=== PATIENT | female | born 1990 ===

== ENCOUNTER 2018-01-07 19:05 | Inpatient (IN) ==
[~2018-01-07 19:05] MED LIST: Famotidine 20 MG/2 ML VIAL IVP PRN; Lidocaine 1% 20 ML MDV INFILT PRN; Metoclopramide 10 MG/2 ML VIAL IVP PRN; Naloxone 0.4 MG/ML INJ IVP PRN; Ondansetron 4 MG/2 ML VIAL IVP PRN; Ringers Solution, Lactated 1,000 ML ONE
[2018-01-07] MEDS ORDERED: Oxytocin 20 units/ LR 1000 mL 20 UNIT/1,000 ML BAG IVC ONE (19:06)
[2018-01-07] MEDS ORDERED: Ringers Solution, Lactated 1,000 ML IVC SCH (19:15)
[2018-01-07] MEDS ORDERED: EPHEDrine 50 MG/ML VIAL IVP PRN (19:18)
[2018-01-07] MEDS ORDERED: Ringers Solution, Lactated 500 ML IVC ONE (19:18)
[2018-01-07 19:21] LABS: Basophils # 0.1 K/mcL (0.0-0.2); Basophils % 0.3 %; Eosinophils % 0.1 %; Hematocrit 38.1 % (35.3-44.9); Hemoglobin 12.2 g/dL (11.5-15.4); Immature Granulocytes % 1.2 % (0-4); Lymphocytes % 6.2 %; Mean Corpuscular Volume 87.4 fL (83.0-100.0); Mean Platelet Volume 11.3 fL (9.4-12.4); Monocytes # 0.6 K/mcL (0.0-1.3); Monocytes % 3.7 %; Neutrophils # 14.9 K/mcL (1.6-8.9); Platelet Count 246 K/mcL (140-400); Red Blood Count 4.36 M/mcL (3.82-4.97); Red Cell Distribution Width 13.1 % (11.5-14.5); Segmented Neutrophils % 88.5 %
--- NOTE | 2018-01-07 19:23 | Anesthesia Evaluation PreOp ---
Date of Encounter: 01/07/18 Time of Encounter: 19:21 - Past History Planned Operation: JAIDEN Cardiac History: Denies any Significant Hx Pulmonary History: Denies Any Significant HX [employer] History: Denies Any Significant HX Other Medical History: Denies Any Significant HX Anesthesia History: No Prior Anesthetic Complications : Yes Drug use: IV Drug Use (none within last 3 months) Medications and Allergies 3 Allergy/AdvReac Type Severity Reaction Status Date / Time Penicillins Allergy Anaphylaxis Verified 01/07/18 19:05 - Meds/Allergy Pre-op Review Medications Reviewed: Yes Allergies Reviewed: Yes Beta Blockers on Current Med List: No Anesthesia Exam Height: 5'6" Weight: 63.4kg NPO (# of Hours): 4 Pain Scale: 9 Pain Scale Used: Numeric (1 - 10) - HEENT Pupil (Motor): Pupils equal Mallampati: II Teeth: Poor dentition Oral Opening: Greater than 3 - [employer] LOC: Oriented [employer] Motor: Normal RUE, Normal LUE, Normal RLE, Normal LLE, Normal Face [employer] Sensory: Normal: RUE, LUE, RLE, LLE, Face - Cardiac Rhythm: Regular Murmur: None JVD: No Carotid Bruit: No - Pulmonary Breath Sounds: bilateral Clear Respiratory Effort: Symmetrical Anesthesia Assess/Plan ASA Score: 3 Modified Pocahontas Scale for Level of Consciousness: Cooperative, oriented, and tranquil Anesthetic Plan: General (plan b), Regional (plan a) Autologous Blood: Yes Monitoring Plan: Standard Monitors
[2018-01-07] MEDS ORDERED: Epidural Premix (fent/bupiv) 110 ML EP SCH (19:30)
[2018-01-07] MEDS ORDERED: Epidural Premix (fent/bupiv) 110 ML EP ONE (19:36)
[2018-01-07] MEDS ORDERED: Lidocaine/EPI 1:200k 2% PF 20 ML VIAL ONE (19:36)
--- NOTE | 2018-01-07 19:50 | Anesthesia Procedures ---
Date of Encounter: 01/07/18 Time of Encounter: 19:48 Procedures: Anesthesia - Epidural/Spinal Patient ID/Chart reviewed: Yes Patient examined: Yes OB Eval: Gestational age: 38 OB Eval: : 2 OB Eval: Hx Para: 0 OB Eval: Dilated at (cm): 9 OB Eval: Contractions: Non-stressed pattern Consent Obtained: Yes Supplemental Oxygen: None/Room Air Site Prep: Aseptic Technique, Sterile prep and drape, Povidone-Iodine 1% Patient position: upright Local Anesthetic: Lidocaine 1% Amount of Local Anesthetic used: 3 Touhy Needle Gauge: 18 Touhy Needle Depth (cm): 8 Catheter Depth at Skin (cm): 18 Test Dose (1.5% Lido + Epi): Volume given (mls): 5 Test Dose Result: Negative Loading Dose: Other: 10ml of 2%lidocaine with epi Loading Dose Administered: Thru Catheter Infusion Med: 0.125% Bupivacaine w/ 2 mcg/ml Fentanyl Infusion Rate (mls/hr): [address]: Tegaderm, Tape Interspace Used: L3-L4 Loss of Resistance (YAEL): Yes Blood: No CSF: No Paresthesia: No Procedure: pt tolerated procedure well. no complications. vss. fhr stable throughout procedure. see nursing notes for full vitals.
--- NOTE | 2018-01-07 19:58 | OB/GYN History & Physical ---
Date of Encounter: 01/07/18 Time of Encounter: 19:51 Assessment and Plan (1) 39 weeks gestation of Current visit: Yes Status: Acute (2) Active labor at term Current visit: Yes Status: Acute admit to labor and delivery epidural as desired Vancomycin for GBS unkn anticipate (3) Opioid use disorder, moderate, in early remission Current visit: Yes Status: Acute History of Present Illness HPI: Ms. Rosas is a 27 year old female 39+6 presents with contractions. Reports good movement denies vaginal bleeding or leaking of fluid prior to arrival. No care since 5th month. Pt states has relocated back to [place] to [place]. No health history other than opiod use. Per patient has not used in the last 2 months, drug of choice was heroin. Pt states no complications identified Past Med Surg Social Fam HX - Social History Drug use: IV Drug Use (none within last 3 months) Obstetrical History - Pregnancies : 2 Para: 0 Term: 0 : 0 Ab's: 1 Livin Medications and Allergies 3 Allergy/AdvReac Type Severity Reaction Status Date / Time Penicillins Allergy Anaphylaxis Verified 01/07/18 19:05 Exam - Constitutional Constitutional: well developed, well nourished, no acute distress, average body habitus - Neck Neck exam: full ROM - Lungs Respiratory exam: CTAB - Cardiovascular Cardiovascular exam: RRR - Abdomen Abdomen: Present: bowel sounds normal, gravid, non tender - Extremities Extremities exam: normal capillary refill, normal inspection - Vagina Vagina: Present: normal moisture - Cervix Dilation: 9 Station: +1 Results Result Diagrams: 01/07/18 19:04 Abnormal lab results WBC 16.8 K/mcL (4.3-11.1) H 01/07/18 19:04 Neutrophils # 14.9 K/mcL (1.6-8.9) H 01/07/18 19:04 All other labs normal. - VTE Reasons for not Prescribing Prophylaxis: Treatment not Indicated - Low risk for VTE
[2018-01-07 20:31] LABS: Benzodiazepines Screen,Urine Negative ng/mL (Cutoff=200); Opiate Screen,Urine Positive ng/mL (Cutoff=300); Phencyclidine Screen,Urine Negative ng/mL (Cutoff=25)
[2018-01-07 20:39] LABS: Amphetamine Screen,Urine Negative ng/mL (Cutoff=1000); Barbiturate Screen,Urine Negative ng/mL (Cutoff=200); Cannabinoid Screen,Urine Negative ng/mL (Cutoff = 50); Cocaine Screen,Urine Negative ng/mL (Cutoff= 300)
[2018-01-07 22:12] LABS: Hepatitis B Surface Antigen Nonreactive (Nonreactive)
[2018-01-08] MEDS ORDERED: *HR* Nalbuphine 20 MG/ML AMPUL IVP PRN (00:51)
[2018-01-08] MEDS ORDERED: *HR* Midazolam HCl 2 MG/2 ML VIAL IVP ONE (00:52)
[2018-01-08] MEDS ORDERED: Clindamycin 900 MG/50 ML 900 MG/50 ML IV.SOLN IVPB ONE (01:10)
[2018-01-08] MEDS ORDERED: *HR* FentaNYL (PF) 100 MCG/2 ML VIAL ONE (01:11)
[2018-01-08] MEDS ORDERED: Chloroprocaine/PF 20 ML VIAL INFILT ONE (01:11)
[2018-01-08] MEDS ORDERED: diazePAM 10 MG/2 ML SYRINGE IVP PRN (01:24)
--- NOTE | 2018-01-08 01:52 | Anesthesia Progress Note ---
Date of Encounter: 01/08/18 Time of Encounter: 01:50 Anesthesia Note - Note Note: 01/08/18 01:50 called for retained placenta - bolus needed. 20ml of 3% nesacaine with 100mcg fentanyl given. pt comfortable during exam for dr. robertson. iv bolus given of 900ml.
--- NOTE | 2018-01-08 01:59 | OB/GYN Procedure Note ---
Delivery - Delivery Date: 01/08/18 Provider: Eleanor Kerr Intrapartum events: none Delivery induction: none Delivery monitor: external FHT, external uterine Anesthesia: epidural Estimated Blood Loss: 350 - (s) A Delivery Date: 01/08/18 Infant Delivery Time: 00:00 Presentation: vertex Position: OA Route of delivery: Gender: Male Viability: Viable Pounds: 7 Ounces: 6 Weight Gram: 3335 kg at 1 minute: 9 at 5 mins: 9 Shoulder Dystocia: not encountered Specimens collected: cord blood Placenta: uterine exploration, partial extraction Cord: nuchal cord, 3 umbilical vessels, delivered through nuchal - Repair Laceration Description: Perineal - 1st Degree - Complications Delivery complications: retained placenta Delivery comments: pt admitted in active labor at 9cm, epidural, progressed to complete, vertex delivered OA, nuchal cord identified, shoulders and body easily followed as was somersaulted through nuchal cord. vigorous infant placed on maternal abdomen for drying and stimulation. Placenta very slow to delivery at over 30 minutes partial delivery of the placenta occured (adrian), placenta did not continue to release from uterine wall. Dr. Crump called in at this time for manual extraction of placenta. See MD addendum. 1st degree laceration repaired by Dr. Crump EBL 350. - Disposition Mom disposition: stable in LDR [place] disposition: stable in LDR
[2018-01-08] MEDS ORDERED: EPHEDrine 50 MG/ML VIAL ONE (02:12)
[2018-01-08 02:13] LABS: HIV-1&2 Antibody & p24 Ag Nonreactive (Nonreactive)
[2018-01-08] MEDS ORDERED: Benzocaine/Menthol 56 GM AEROSOL SPRAY TP PRN (03:12)
[2018-01-08] MEDS ORDERED: *HR* HYDROcodone/Acet 5/325 mg TABLET PO PRN (03:12)
[2018-01-08] MEDS ORDERED: Measles/Mumps/Rubella Vacc 0.5 ML VIAL SQ PRN (03:12)
[2018-01-08] MEDS ORDERED: Oxytocin 20 units/ LR 1000 mL 20 UNIT/1,000 ML BAG IVC SCH (03:12)
[2018-01-08 06:33] LABS: Basophils % 0.1 %; Hemoglobin 7.3 g/dL (11.5-15.4); Immature Granulocytes % 0.9 % (0-4); Lymphocytes # 1.5 K/mcL (0.6-4.6); Mean Corpuscular HGB Conc 33.2 g/dL (31.6-35.5); Mean Corpuscular Hemoglobin 28.5 pg (28.0-33.3); Mean Corpuscular Volume 85.9 fL (83.0-100.0); Mean Platelet Volume 10.5 fL (9.4-12.4); Monocytes # 1.6 K/mcL (0.0-1.3); Monocytes % 7.5 %; Neutrophils # 17.6 K/mcL (1.6-8.9); Platelet Count 229 K/mcL (140-400); Red Blood Count 2.56 M/mcL (3.82-4.97); Red Cell Distribution Width 13.1 % (11.5-14.5); Segmented Neutrophils % 84.5 %
[2018-01-08] MEDS: Prenatal Vit/FA 1 EACH TABLET PO SCH (08:18)
[2018-01-08] MEDS: Acetaminophen 325 MG TABLET PO PRN ×2 (08:18→21:46)
[2018-01-08] MEDS ORDERED: 0.9 % Sodium Chloride 1,000 ML ONE (09:27)
[2018-01-08 12:24] LABS: Basophils % 0.1 %; Hematocrit 20.6 % (35.3-44.9); Hemoglobin 6.8 g/dL (11.5-15.4); Immature Granulocytes % 0.7 % (0-4); Lymphocytes # 1.3 K/mcL (0.6-4.6); Lymphocytes % 8.2 %; Mean Corpuscular Hemoglobin 28.2 pg (28.0-33.3); Mean Corpuscular Volume 85.5 fL (83.0-100.0); Mean Platelet Volume 10.9 fL (9.4-12.4); Monocytes % 6.3 %; Neutrophils # 13.7 K/mcL (1.6-8.9); Platelet Count 207 K/mcL (140-400); Red Blood Count 2.41 M/mcL (3.82-4.97); Segmented Neutrophils % 84.7 %
--- NOTE | 2018-01-08 17:00 | Event Note ---
Date of Encounter: 01/08/18 Time of Encounter: 16:56 Reviewed CBCs. Pt denies feeling lightheaded or dizzy, adequate urine output. bleeding is minimal, Pt does not want transfusion at this time. Will reevaluate CBC in AM. Iron increased to BID
[2018-01-09 04:36] LABS: Basophils % 0.2 %; Eosinophils # 0.1 K/mcL (0.0-0.6); Eosinophils % 0.8 %; Hematocrit 18.6 % (35.3-44.9); Immature Granulocytes % 1.7 % (0-4); Lymphocytes # 2.2 K/mcL (0.6-4.6); Lymphocytes % 20.3 %; Mean Corpuscular HGB Conc 32.3 g/dL (31.6-35.5); Mean Corpuscular Volume 86.9 fL (83.0-100.0); Mean Platelet Volume 10.6 fL (9.4-12.4); Monocytes # 0.8 K/mcL (0.0-1.3); Monocytes % 7.5 %; Neutrophils # 7.5 K/mcL (1.6-8.9); Platelet Count 183 K/mcL (140-400); Red Blood Count 2.14 M/mcL (3.82-4.97); Red Cell Distribution Width 13.6 % (11.5-14.5); Segmented Neutrophils % 69.5 %
[2018-01-09] MEDS: Ibuprofen 600 MG TABLET PO PRN ×2 (07:37→21:32)
[2018-01-09] MEDS: Prenatal Vit/FA 1 EACH TABLET PO SCH (07:37)
--- NOTE | 2018-01-09 08:02 | Discharge Summary ---
Date of Encounter: 01/09/18 Time of Encounter: 07:45 - Discharge Diagnosis (1) Status post normal vaginal delivery Priority: Primary Status: Acute Comments: s/p normal vaginal delivery Day #2 Lochia light and without clots Pain is well controlled VSS Bottle feeding Tolerating regular diet; voiding without difficulty Discharge to guest per policy as infant is not being discharged from hospital today (2) Substance abuse or dependence Priority: Primary Status: Acute (3) Retention of portions of placenta without hemorrhage Priority: Primary Status: Acute (4) Anemia complicating the puerperium Priority: Primary Status: Acute Comments: VSS Significant hemoglobin decrease after delivery Infuse 2 units PRBC. Repeat CBC after transfusion. Discharge this afternoon. - Discharge Medications Prescriptions: Ibuprofen [Motrin] 600 mg PO Q6HR PRN #60 tablet PRN Reason: Mild Pain Docusate [Colace] 100 mg PO BID #60 capsule Ferrous Sulfate 325 mg PO BIDWM #60 tablet Home Medications: Docusate [Colace] 100 mg PO BID #60 capsule 01/09/18 [Rx] Ferrous Sulfate 325 mg PO BIDWM #60 tablet 01/09/18 [Rx] Ibuprofen [Motrin] 600 mg PO Q6HR PRN #60 tablet 01/09/18 [Rx] Allergies/Adverse Reactions: 3 Allergy/AdvReac Type Severity Reaction Status Date / Time Penicillins Allergy Anaphylaxis Verified 01/07/18 19:05 Data Procedures and tests throughout hospitalization: Laboratory Tests 01/07/18 01/07/18 01/07/18 19:04 19:05 20:20 WBC 16.8 H RBC 4.36 Hgb 12.2 Hct 38.1 MCV 87.4 MCH 28.0 MCHC 32.0 RDW 13.1 Plt Count 246 MPV 11.3 Immature Gran % 1.2 Seg Neutrophils % 88.5 Lymphocytes % 6.2 Monocytes % 3.7 Eosinophils % 0.1 Basophils % 0.3 Neutrophils # 14.9 H Lymphocytes # 1.0 Monocytes # 0.6 Eosinophils # 0.0 Basophils # 0.1 Urine Opiates Screen Positive H Ur Barbiturates Screen Negative Ur Phencyclidine Scrn Negative Ur Amphetamines Screen Negative U Benzodiazepines Scrn Negative Urine Cocaine Screen Negative U Marijuana (THC) Screen Negative Hep Bs Antigen Nonreactive HIV Ag/Ab Combo Qual Nonreactive Blood Type 01/07/18 01/08/1801/08/18 20:38 06:13 11:51 WBC 20.8 H 16.2 H RBC 2.56 L 2.41 L Hgb 7.3 L D 6.8 L Hct 22.0 L 20.6 L MCV 85.9 85.5 MCH 28.5 28.2 MCHC 33.2 33.0 RDW 13.1 13.0 Plt Count 229 207 MPV 10.5 10.9 Immature Gran % 0.9 0.7 Seg Neutrophils % 84.5 84.7 Lymphocytes % 7.0 8.2 Monocytes % 7.5 6.3 Eosinophils % 0.0 0.0 Basophils % 0.1 0.1 Neutrophils # 17.6 H 13.7 H Lymphocytes # 1.5 1.3 Monocytes # 1.6 H 1.0 Eosinophils # 0.0 0.0 Basophils # 0.0 0.0 Urine Opiates Screen Ur Barbiturates Screen Ur Phencyclidine Scrn Ur Amphetamines Screen U Benzodiazepines Scrn Urine Cocaine Screen U Marijuana (THC) Screen Hep Bs Antigen HIV Ag/Ab Combo Qual Blood Type O POSITIVE 01/09/18 04:05 WBC 10.8 RBC 2.14 L Hgb 6.0 L* Hct 18.6 L MCV 86.9 MCH 28.0 MCHC 32.3 RDW 13.6 Plt Count 183 MPV 10.6 Immature Gran % 1.7 Seg Neutrophils % 69.5 Lymphocytes % 20.3 Monocytes % 7.5 Eosinophils % 0.8 Basophils % 0.2 Neutrophils # 7.5 Lymphocytes # 2.2 Monocytes # 0.8 Eosinophils # 0.1 Basophils # 0.0 Urine Opiates Screen Ur Barbiturates Screen Ur Phencyclidine Scrn Ur Amphetamines Screen U Benzodiazepines Scrn Urine Cocaine Screen U Marijuana (THC) Screen Hep Bs Antigen HIV Ag/Ab Combo Qual Blood Type Labs on day of discharge: Labs from last 24 hours 01/09/18 01/08/18 04:05 11:51 WBC 10.8 16.2 H RBC 2.14 L 2.41 L Hgb 6.0 L* 6.8 L Hct 18.6 L 20.6 L MCV 86.9 85.5 MCH 28.0 28.2 MCHC 32.3 33.0 RDW 13.6 13.0 Plt Count 183 207 MPV 10.6 10.9 Immature Gran % 1.7 0.7 Seg Neutrophils % 69.5 84.7 Lymphocytes % 20.3 8.2 Monocytes % 7.5 6.3 Eosinophils % 0.8 0.0 Basophils % 0.2 0.1 Neutrophils # 7.5 13.7 H Lymphocytes # 2.2 1.3 Monocytes # 0.8 1.0 Eosinophils # 0.1 0.0 Basophils # 0.0 0.0 Date of admission: 01/07/18 19:05 Consults: 01/08/18 03:12 Consult to Verifying Specialist [CONS] Routine Reason for SW Consult: + opiod on Utox. Discharging clinician: Tres Esparza Anticipated date of discharge: 01/09/18 - Patient Status Disposition: Home, Self-Care Condition: Good Functional capacity at discharge: independent ambulation Overall status at discharge: patient is progressing back to baseline - Discharge Instructions Follow Up With: Eleanor Kerr, CNM [Advanced Practice Nurse] - - Diet and Activity Activity: increase activity as tolerated, return to work once cleared by your PCP/specialist, resume usual activities as tolerated Diet: advance to your usual diet Hospital Course Reason for admission: active labor Delivery: Episiotomy: none Laceration: 1st degree Other procedures: other (manual extraction of placenta retention) complications: retained placenta Discharge diagnosis: IUP at term delivered baby: male Hospital course: Delivery - Delivery Date: 01/08/18 Provider: Eleanor Kerr Intrapartum events: none Delivery induction: none Delivery monitor: external FHT, external uterine Anesthesia: epidural Estimated Blood Loss: 350 - (s) A Infant Delivery Date: 01/08/18 Delivery Time: 00:00 Presentation: vertex Position: OA Route of delivery: Gender: Male Viability: Viable Pounds: 7 Ounces: 6 Weight Gram: 3335 kg at 1 minute: 9 at 5 mins: 9 Shoulder Dystocia: not encountered Specimens collected: cord blood Placenta: uterine exploration, partial extraction Cord: nuchal cord, 3 umbilical vessels, delivered through nuchal - Repair Laceration Description: Perineal - 1st Degree - Complications Delivery complications: retained placenta Delivery comments: pt admitted in active labor at 9cm, epidural, progressed to complete, vertex delivered OA, nuchal cord identified, shoulders and body easily followed as infant was somersaulted through nuchal cord. vigorous infant placed on maternal abdomen for drying and stimulation. Placenta very slow to delivery at over 30 minutes partial delivery of the placenta occured (adrian), placenta did not continue to release from uterine wall. Dr. Crump called in at this time for manual extraction of placenta. See MD addendum. 1st degree laceration repaired by Dr. Crump EBL 350. Addendum entered and electronically signed by Blair Crump MD 01/08/18 02: 02: Called by CNM after delivery for retained placenta. After approximately 45 min s/p , large portion of placenta remained strongly adherent to posterior vaginal wall. Attempts at gentle traction from below and fundal massage were unsuccessful at releasing placenta. Pt was given 5 mg of Versed and epidural was dosed by anesthesia to improve anesthesia. My hand was then used to manually extract the remaining placenta from posterior wall of uterus. I then spent another 20 min extracting pieces of placenta and membrane from the post and right wall of the uterus where the placenta had been very adherent. Gently sharp curretage was then performed with gino currette revealing little remaining placenta. Bimanual exam revealed smooth uterine cavity without evidence of retained placenta or membranes. First degree laceration repaired with 3-0 Vicryl without difficulty. Pt was given Vancomycin and additional dose of Clindamycin. EBL 350 cc. No other complications. Mother and infant recovered in LDR. Time spent discussing smoking cessation with patient: 3 to 10 minutes Time Attestation: Total time spent providing and/or coordinating discharge services: Time Spent: Greater than 30 minutes Exam - Constitutional Vitals: Temp Pulse Resp BP Pulse Ox 98.6 F 88 16 120/72 99 01/09/18 07:55 01/09/18 07:55 01/09/18 07:55 01/09/18 07:55 01/09/18 04:00 General appearance IM: A&O X 3 - Respiratory Respiratory exam: Present: CTAB. Absent: rales, rhonchi, wheezes - Cardiovascular Cardiovascular exam IM: Present: +S1, +S2, tachycardia. Absent: systolic murmur - GI/Abdominal GI/Abdominal exam IM: hypoactive bowel sounds, tenderness Incision: normal - Uterine Tone: Firm With Massage Uterus Position: 2 Fingers Below Umbilicus - Extremities Exam Extremities exam IM: Present: full ROM, normal inspection, radial pulses palpable and symmetrical - Neurological Exam Neurological exam: oriented X3, no focal deficits - Psychiatric Additional comments: Patient is in good mood
[2018-01-09] MEDS ORDERED: 0.9 % Sodium Chloride 1,000 ML ONE (09:12)
[2018-01-09 09:51] LABS: Rubella IgG Antibody POSITIVE (POSITIVE); Varicella Zoster IgG Antibody Positive
[2018-01-09 22:32] LABS: Hematocrit 23.7 % (35.3-44.9)
[2018-01-09 22:40] LABS: Hemoglobin 7.9 g/dL (11.5-15.4)
== END 2018-01-10 00:42 | disposition home or self-care (01) | DRG 767 ==
LOC: 1NENULAB → 1NENUOBS 01-08 04:55
PROVIDERS: ADMIT Obstetrics & Gynecology; ATTEND Obstetrics & Gynecology